=== PATIENT | male | born 1955 | race Caucasian/White ===

== ENCOUNTER 2017-12-20 17:31 | Inpatient (IN) ==
[2017-12-20] MEDS ORDERED: NITROGLYCERIN 0.4 MG SUBLINGUAL TABLET SL PRN (18:07)
[2017-12-20] MEDS ORDERED: ASPIRIN 81 MG CHEWABLE TABLET PO ONE (18:07)
[2017-12-20] MEDS ORDERED: NS 1,000 ML IV ONE ×2 (18:07→19:03)
[2017-12-20] MEDS: SALINE FLUSH 10ml SYRINGE IVF PRN ×2 (18:13→19:39)
--- NOTE | 2017-12-20 18:26 | Emergency Department Report ---
General Adult HPI - General Chief complaint: Medical Emergency Stated complaint: Neck hurts - History of Present Illness HPI narrative: 62-year-old male presents with weakness and dizziness. Patient worked in the sun a full shift, doing construction. He has had this happen once before, approximately 2 years ago when he became dehydrated. He has no cardiac history, takes blood pressure medication, but no other medical issues. Does have some abdominal pain which developed this afternoon. This also happened last time when he became too dehydrated. Has not urinated since approximately noon. Bowel movement 2 since arrival in the ED. Second bowel movement evaluated and very watery. No shortness of breath or chest pain. - Related Data Home Medications Medication Instructions Recorded Confirmed Aspirin [Adult Aspirin] 81 mg PO DAILY 12/20/17 12/20/17 Previous Rx's Medication Instructions Recorded Trolamine Salicylate 10% Cream 1 applicatio TOP QID tube 12/22/17 [Aspercreme] Allergies Allergy/AdvReac Type Severity Reaction Status Date / Time No Known Allergies Allergy Unverified 12/20/17 17:48 Review of Systems All systems: reviewed and negative except as stated PFSH Patient Stated Medical History Hypertension Yes - Social History Smoking status: Never smoker Substance use type: does not use Physical Exam - Limitations Limitations: language barrier - General General appearance: alert, in distress - Normal Exams: Head:: Normocephalic without trauma Chest/Respirations:: Clear all [place], with good airflow, and symmetry bilaterally Cardiovascular:: without murmur or gallop, Pulses 2+ all extremities, capillary refill, <2 seconds all extremities Abdomen:: Bowel sounds positive, non-distended, no hepatosplenomegaly, masses or bruits noted Neurological:: Patient is alert, and oriented, cranial nerves, motor/sensory/ cerebellar, exams w/o gross deficits, to observation - Cardiovascular Cardiovascular exam: Present: normal rhythm, tachycardia - Abdominal Exam Abdominal exam: Present: tenderness (left lower quadrant), hypoactive bowel sounds. Absent: guarding, rebound, rigidity Medical Decision Making - [facility] Narrative Medical decision making narrative: Peripheral IV placed immediately with 1 L normal saline fast bolus. After 1 L normal saline, patient's blood pressure improved to 90 systolic. A second liter of normal saline was started and blood pressure improved to 99/50. Blood work returned showing elevated creatinine 4.6 with potassium 5.5. On reviewing patient's chart, he has had previous episode with dehydration and elevated creatinine which improved dramatically with hydration with IV fluids. Spoke with hospitalist and discussed the case, it is appropriate to admit the patient for IV hydration with follow-up labs in a.m. He may need transfer to tertiary care center with inpatient dialysis and he understands this, but he would prefer to start here if possible. Hospitalist is in agreement. EKG was obtained and did not show obvious T-wave changes due to hyperkalemia. - Differential Diagnosis dehydration, diarrhea, gastroenteritis, heat exhaustion - Lab Data Result diagrams: 12/22/17 06:45 12/22/17 06:45 - EKG Data EKG #1 EKG attestation: Yes: I reviewed and interpreted this EKG. EKG results narrative: 77 bpm EKG shows normal: sinus rhythm Rate: normal Rhythm: NSR [place]/QRS: normal Interpretation: no acute changes Disposition Clinical Impression: Dehydration Disposition: 02 To [facility] Acute Care Condition: Improved Time of Disposition: 16:06 - Seen By: physician
[2017-12-20] MEDS ORDERED: INSULIN REGULAR, HUMAN 100 UNIT/ML INJECTION IVP ONE (19:04)
[2017-12-20] MEDS ORDERED: ONDANSETRON 4 MG/2 ML INJECTION IVP PRN (21:34)
[2017-12-20] MEDS: NS 1,000 ML IV SCH (21:45)
[2017-12-20 22:43] VITALS: BMI 44.7
--- NOTE | 2017-12-20 23:29 | History & Physical Report ---
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 He did not drink much fluids today, no recent illness, no ill contacts, He came to the ER today due to his weakness as well as [place]EL[place], his BP was 90/60, given 2 liters in the ER. Review of Systems All systems PM: 10-point ROS was reviewed, no additional remarkable complaints except - Constitutional Constitutional: Present: chills, fatigue, headache(s) - Gastrointestinal Gastrointestinal: Present: diarrhea, vomiting. Absent: nausea Past Medical History Family History: As Above - Social History Smoking status: Never smoker Substance use type: does not use Alcohol intake: current Alcohol intake frequency: 3 or more drinks per day Medications Home Medications Medication Instructions Recorded Confirmed Type Aspirin [Adult Aspirin] 81 mg PO DAILY 12/20/17 12/20/17 History Lisinopril [Prinivil] 20 mg PO HS 12/20/17 12/20/17 History Allergies Allergy/AdvReac Type Severity Reaction Status Date / Time No Known Allergies Allergy Unverified 12/20/17 17:48 Exam Vital Signs: Temperature 97.6 F 12/20/17 21:31 Pulse Rate 62 12/20/17 21:31 Respiratory Rate 16 12/20/17 21:31 Blood Pressure 102/61 12/20/17 21:31 Pulse Oximetry 97 12/20/17 21:31 Height/Weight/BMI: Height 1.52 m Weight 104 kg Body Mass Index 44.7 - Constitutional Present: no acute distress, obese - Routine HEENT Exam Head: Present: normocephalic - Routine Neck Exam Present: supple - Routine Respiratory Exam Present: CTA bilaterally - Routine Cardiovascular Exam Present: RRR, no murmur - Routine Abdominal Exam Present: soft, normoactive bowel sounds, non distended, non tender Results - Labs CBC & Chem 7: 12/20/17 18:12 12/20/17 20:05 Microbiology Results: Microbiology 12/20/17 18:20 Peripheral/Iv Start Blood Culture - Preliminary Culture Initiated - Results Pending 12/20/17 18:30 Peripheral/Iv Start Blood Culture - Preliminary Culture Initiated - Results Pending Assessment and Plan (1) ARF (acute renal failure) Current visit: Yes Status: Acute (2) Dehydration Current visit: Yes Status: Acute Assessment and Plan: Will continue with aggressive fluid rehydration, recheck BMP and GFR in the am. The pt had a similar episode in the past and his Cr improved with just IVF, hopefully this will be true today. Consider nephrology consult if not improved in am. recheck potassium level in am, slightly improved with recheck in ER. EKG reviewed- normal. DVT Prophylaxis: SCD's GI Prophylaxis: Protonix Resuscitation Status: Full Code - Physician Narrative Narrative: Date: 12/20/17 Time: 2324 Hospital Course Summary Disclaimer: The visit summary below is not to be considered part of the above Progress Note.
[2017-12-21] MEDS: NS 1,000 ML IV SCH ×5 (02:39→22:33)
[2017-12-21] MEDS ORDERED: PANTOPRAZOLE 20 MG TABLET PO SCH (06:30)
--- NOTE | 2017-12-21 08:04 | XRay Report ---
INDICATION: pain PROCEDURE: CHEST 2-VIEWS UPRIGHT (PA & LAT) Encounter: Initial COMPARISON: None FINDINGS: The lungs are clear without evidence of focal abnormal airspace opacity. There is no pleural effusion or pneumothorax. The heart size, mediastinal contours and pulmonary vascularity are within normal limits. Advanced degenerative change in the right shoulder. IMPRESSION: No acute cardiopulmonary disease. .
[2017-12-21] MEDS: ACETAMINOPHEN 325 MG TABLET PO PRN (08:29)
[2017-12-21] MEDS: PANTOPRAZOLE 40 MG TABLET PO SCH (08:30)
[2017-12-21] MEDS: ASPIRIN *EC* 81 MG TABLET PO SCH (08:30)
--- NOTE | 2017-12-21 14:11 | History & Physical Report ---
History of Present Illness Date: 12/21/17 Chief complaint: Neck pain; nausea and vomiting. HPI: Patient is a 62 y/o active male who present to [facility] ED secondary to increasing n/ v, diarrhea, and weakness. Has been working in high heat all day. Not much fluid intake. Notes progressive dyspepsia with n/v. Started passing loose stools. Very weak and unsteady. Breathing well without SOA or congestion. Notes neck pain to back of head/upper shoulder area. As symptoms persistent, came to ED for evaluation. BP very low. Creatinine elevated at 4.8. Has history of similar presentation in January of 2014 when presented with creatinine elevated to 6.0 - improved with hospitalization for IVF. Due to his acute kidney injury likely secondary to severe dehydration and heat exhaustion, placed in inpatient admission at [facility] for further care and treatment. Review of Systems All systems PM: 10-point ROS was reviewed, no additional remarkable complaints except - Constitutional Constitutional: Present: anorexia (With acute symptoms), headache(s) - Cardiovascular Cardiovascular: Present: edema (Reports intermittent edema at home. ). Absent: chest pain, palpitations - Respiratory Respiratory: Absent: cough, pain on inspiration - Gastrointestinal Gastrointestinal: Present: abdominal pain, diarrhea, nausea, vomiting - Musculoskeletal Musculoskeletal: Present: neck pain Past Medical History Medical History Updates: Hypertension, Hx ENRIQUE secondary to dehydration, Morbid Obesity Surgical History: Appy Family History: Diabetes and HTN in family Family History: As Above - Social History Smoking status: Never smoker Household members: spouse Social history: Dr Lemus is PCP Medications Home Medications Medication Instructions Recorded Confirmed Type Aspirin [Adult Aspirin] 81 mg PO DAILY 12/20/17 12/20/17 History Lisinopril [Prinivil] 20 mg PO HS 12/20/17 12/20/17 History Allergies Allergy/AdvReac Type Severity Reaction Status Date / Time No Known Allergies Allergy Unverified 12/20/17 17:48 Exam Vital Signs: Temperature 95.7 F L 12/21/17 08:19 Pulse Rate 67 12/21/17 08:19 Respiratory Rate 20 12/21/17 08:19 Blood Pressure 144/67 H 12/21/17 08:19 Pulse Oximetry 99 12/21/17 08:19 Height/Weight/BMI: Height 1.52 m Weight 103.3 kg Body Mass Index 44.7 - Constitutional Present: well nourished, well developed, morbidly obese, cooperative. Absent: combative, agitated, somnolent, obtunded - Routine HEENT Exam Head: Present: normocephalic, atraumatic Eye: Present: EOMI, PERRL, normal accommodation - Routine Neck Exam Present: supple, full ROM, trachea midline - Routine Respiratory Exam Present: decreased breath sounds. Absent: rales, respiratory distress, rhonchi , stridor, wheezes, crackles - Routine Cardiovascular Exam Present: RRR, no murmur - Routine Abdominal Exam Present: soft, normoactive bowel sounds, non distended, non tender. Absent: guarding - Routine Extremities Exam Present: no edema, pulses intact. Absent: cyanosis, clubbing - Routine Skin Exam Present: dry, warm - Routine Neurological Exam Present: alert, oriented X3, CN II-XII intact, moving all extremities, vision grossly intact, hearing grossly intact, normal speech. Absent: motor deficit, altered mental status - Routine Psychiatric Exam Present: normal affect, normal thought process, cooperative. Absent: anxious, agitated, paranoid Results - Labs CBC & Chem 7: 12/21/17 05:14 12/21/17 05:14 Microbiology Results: Microbiology 12/20/17 18:20 Peripheral/Iv Start Blood Culture - Preliminary Culture Initiated - Results Pending 12/20/17 18:30 Peripheral/Iv Start Blood Culture - Preliminary Culture Initiated - Results Pending Assessment and Plan (1) ARF (acute renal failure) Current visit: Yes Status: Acute (2) Dehydration Current visit: Yes Status: Acute Assessment and Plan: Assessment Acute kidney injury - creatinine 4.8 at presentation, greater than 3x baseline 1.2 at presentation Suspect prerenal secondary to dehydration Metabolic acidosis Dehydration/volume depletion Hypotension Hyperkalemia (POA) Leukocytosis Nausea with vomiting Diarrhea Chronic HTN addressed with lisinopril in outpatient setting Elevated blood sugar Morbid Obesity with BMI 44.5 Plan Placed in OBS by telehospitalist - with significant elevation of creatinine to 3 times baseline at presentation, Inpatient admission would have been prudent. With IVF and holding lisinopril, creatinine decreasing, potassium normalized, and blood pressures increased. Urine output increased and n/v/d resolved. Continue with IVF, decreasing to 125cc/hr. Metabolic acidosis continues. CPK showing mild elevation at 251 - mild rhabdo. Recheck BMP this afternoon to reassess renal status and CO2. Resuscitation Status: Full Code - Physician Narrative Physician: Alberto Brown MD Narrative: Date: 12/21/17 Time: 1408 Hospital Course Summary Disclaimer: The visit summary below is not to be considered part of the above Progress Note. Hospital Course: 12/20/17 OBS admission Will continue with aggressive fluid rehydration, recheck BMP and GFR in the am. The pt had a similar episode in the past and his Cr improved with just IVF, hopefully this will be true today. Consider nephrology consult if not improved in am. Recheck potassium level in am, slightly improved with recheck in ER. EKG reviewed- normal. Full code per his requests. Care to return to Dr Lemus at discharge from [facility]. 12/21/17 Placed in OBS by telehospitalist - with significant elevation of creatinine to 3 times baseline at presentation, Inpatient admission would have been prudent. With IVF and holding lisinopril, creatinine decreasing, potassium normalized, and blood pressures increased. Urine output increased and n/v/d resolved. Continue with IVF, decreasing to 125cc/hr. Metabolic acidosis continues. CPK showing mild elevation at 251 - mild rhabdo. Recheck BMP this afternoon to reassess renal status and CO2.
[2017-12-22] MEDS: PANTOPRAZOLE 40 MG TABLET PO SCH (05:54)
[2017-12-22] MEDS: ACETAMINOPHEN 325 MG TABLET PO PRN (05:54)
[2017-12-22] MEDS: NS 1,000 ML IV SCH ×2 (06:37→15:03)
[2017-12-22 08:09] VITALS: BP 112/57; PULSE 64; RESP 16; TEMP 97.9; O2SAT 98
[2017-12-22] MEDS: ASPIRIN *EC* 81 MG TABLET PO SCH (08:18)
--- NOTE | 2017-12-22 13:13 | Progress Note ---
- Date 12/22/17 Subjective: F/U: Acute kidney injury Doing very well today. Only issue is his neck pain. No nausea or ab pain. Not having loose stool. Breathing well. Eating well. Urinating well. Feels ready to go home. Objective Vital signs: Temperature 97.9 F 12/22/17 08:00 Pulse Rate 64 12/22/17 08:00 Respiratory Rate 16 12/22/17 08:00 Blood Pressure 112/57 12/22/17 08:00 Pulse Oximetry 98 12/22/17 08:00 Height/Weight/BMI: Height 1.52 m Weight 104.8 kg Body Mass Index 44.7 - Constitutional Present: no acute distress, well nourished, well developed, morbidly obese, cooperative - Routine HEENT Exam Head: Present: normocephalic, atraumatic, abrasion Eye: Present: PERRL, scleral injection - Routine Respiratory Exam Present: CTA bilaterally. Absent: respiratory distress - Routine Cardiovascular Exam Present: RRR, no murmur - Routine Abdominal Exam Present: soft, normoactive bowel sounds, non distended, non tender - Routine Extremities Exam Present: pulses intact. Absent: cyanosis, clubbing - Routine Skin Exam Present: intact, dry, warm - Routine Neurological Exam Present: alert, oriented X3, CN II-XII intact, moving all extremities, vision grossly intact, hearing grossly intact, normal speech. Absent: motor deficit, altered mental status - Routine Psychiatric Exam Present: normal affect, normal thought process, cooperative Results - Labs CBC & Chem 7: 12/22/17 06:45 12/22/17 06:45 Microbiology Results: Microbiology 12/20/17 18:20 Peripheral/Iv Start Blood Culture - Preliminary No Growth After 1 Day 12/20/17 18:30 Peripheral/Iv Start Blood Culture - Preliminary No Growth After 1 Day Assessment and Plan (1) ARF (acute renal failure) Current visit: Yes Status: Acute (2) Dehydration Current visit: Yes Status: Acute Assessment and Plan: Assessment Acute kidney injury - creatinine 4.8 at presentation, greater than 3x baseline 1.2 at presentation Suspect prerenal secondary to dehydration Metabolic acidosis Dehydration/volume depletion Hypotension Hyperkalemia (POA) Leukocytosis Nausea with vomiting Diarrhea Chronic HTN addressed with lisinopril in outpatient setting Elevated blood sugar Morbid Obesity with BMI 44.5 Plan Clinically improved. No nausea/vomiting; eating well. Breathing well. Blood pressure improved. Creatinine with improvement to 1.1. Potassium normal at 4.8. May use topical Aspercreme to help neck pain. Tylenol as needed. Avoid NSAIDS. HOLD lisinopril until evaluated in [address] Lemus. F/U with Dr Lemus in 1 week - recommend rechecking BMP secondary to resolving ENRIQUE. See orders for details. Time spent with patient care and discharge greater than 30 minutes. Resuscitation Status: Full Code - Physician Narrative Physician: Alberto Brown MD Narrative: Date: 12/22/17 Time: 1310 Hospital Course Summary Disclaimer: The visit summary below is not to be considered part of the above Progress Note. Hospital Course: 12/20/17 OBS admission Will continue with aggressive fluid rehydration, recheck BMP and GFR in the am. The pt had a similar episode in the past and his Cr improved with just IVF, hopefully this will be true today. Consider nephrology consult if not improved in am. Recheck potassium level in am, slightly improved with recheck in ER. EKG reviewed- normal. Full code per his requests. Care to return to Dr Lemus at discharge from [facility]. 12/21/17 Placed in OBS by telehospitalist - with significant elevation of creatinine to 3 times baseline at presentation, Inpatient admission would have been prudent. With IVF and holding lisinopril, creatinine decreasing, potassium normalized, and blood pressures increased. Urine output increased and n/v/d resolved. Continue with IVF, decreasing to 125cc/hr. Metabolic acidosis continues. CPK showing mild elevation at 251 - mild rhabdo. Recheck BMP this afternoon to reassess renal status and CO2. 12/22/17 Clinically improved. No nausea/vomiting; eating well. Breathing well. Blood pressure improved. Creatinine with improvement to 1.1. Potassium normal at 4.8. May use topical Aspercreme to help neck pain. Tylenol as needed. Avoid NSAIDS. HOLD lisinopril until evaluated in [address] Lemus. F/U with Dr Lemus in 1 week - recommend rechecking BMP secondary to resolving ENRIQUE. See orders for details.
--- NOTE | 2017-12-22 15:55 | Discharge Summary ---
Discharge Information Date of admission: 12/22/17 13:04 Anticipated date of discharge: 12/22/17 Attending Physician: Alberto Brown MD Primary care physician: Lui Lemus DO - Discharge Diagnosis (1) ARF (acute renal failure) Status: Acute (2) Dehydration Status: Acute Discharge diagnosis Acute kidney injury - creatinine 4.8 at presentation, greater than 3x baseline 1.2 at presentation Suspect prerenal secondary to dehydration Associated conditions and complications Metabolic acidosis Dehydration/volume depletion Hypotension Hyperkalemia (POA) Leukocytosis Nausea with vomiting Diarrhea Chronic HTN addressed with lisinopril in outpatient setting Elevated blood sugar Morbid Obesity with BMI 44.5 - Laboratory Labs: Admit Lab 12/20/17 18:12 WBC 14.1 H Hgb 16.7 Hct 48.9 MCV 91.2 Plt Count 255 Neut % (Auto) 74.9 H Lymph % (Auto) 17.6 L Richardson % (Auto) 6.3 Eos % (Auto) 0.4 Baso % (Auto) 0.4 Admit Lab 12/20/17 18:20 Sodium 144 Potassium 5.5 H Chloride 104 Carbon Dioxide 16 L Anion Gap 24 H BUN 53.0 H* Creatinine 4.6 H GFR Calculation 13 BUN/Creatinine Ratio 12 Glucose 186 H Calculated Osmolality 296 H Calcium 10.8 H Total Bilirubin 0.60 AST 37 ALT 41 Alkaline Phosphatase 113 Troponin I 0.025 NT-Pro-B Natriuret Pep 713 H Total Protein 9.2 H Albumin 5.3 H Globulin 3.9 H Albumin/Globulin Ratio 1.4 Lipase 166 Plasma Lactate 1.6 Laboratory Tests 12/21/17 05:14 Hemoglobin A1c 7.1 H 12/22/17 06:45 12/22/17 06:45 - Microbiology Microbiology 12/20/17 18:20 Peripheral/Iv Start Blood Culture - Preliminary No Growth After 1 Day 12/20/17 18:30 Peripheral/Iv Start Blood Culture - Preliminary No Growth After 1 Day - Radiology Radiology: Date of Exam: 12/20/17 Type of Exam: XR chest 2V FINDINGS: The lungs are clear without evidence of focal abnormal airspace opacity. There is no pleural effusion or pneumothorax. The heart size, mediastinal contours and pulmonary vascularity are within normal limits. Advanced degenerative change in the right shoulder. IMPRESSION: No acute cardiopulmonary disease. History of Present Illness HPI: Patient is a 62 y/o active male who present to [facility] [place] ED secondary to increasing n/ v, diarrhea, and weakness. Has been working in high heat all day. Not much fluid intake. Notes progressive dyspepsia with n/v. Started passing loose stools. Very weak and unsteady. Breathing well without SOA or congestion. Notes neck pain to back of head/upper shoulder area. As symptoms persistent, came to ED for evaluation. BP very low. Creatinine elevated at 4.8. Has history of similar presentation in January of 2014 when presented with creatinine elevated to 6.0 - improved with hospitalization for IVF. Due to his acute kidney injury likely secondary to severe dehydration and heat exhaustion, placed in inpatient admission at [facility] [place] [facility] for further care and treatment. For complete details of the H&P refer to that document. Objective Vital signs: Temperature 97.9 F 12/22/17 08:00 Pulse Rate 64 12/22/17 08:00 Respiratory Rate 16 12/22/17 08:00 Blood Pressure 112/57 12/22/17 08:00 Pulse Oximetry 98 12/22/17 08:00 Height/Weight/BMI: Height 1.52 m Weight 104.8 kg Body Mass Index 44.7 Hospital Course This is a general summary of the patient's hospital course. For more details refer to the complete medical record. Hospital course: 12/20/17 OBS admission Will continue with aggressive fluid rehydration, recheck BMP and GFR in the am. The pt had a similar episode in the past and his Cr improved with just IVF, hopefully this will be true today. Consider nephrology consult if not improved in am. Recheck potassium level in am, slightly improved with recheck in ER. EKG reviewed- normal. Full code per his requests. Care to return to Dr Lemus at discharge from [facility] [place] [facility]. 12/21/17 Placed in OBS by telehospitalist - with significant elevation of creatinine to 3 times baseline at presentation, Inpatient admission would have been prudent. With IVF and holding lisinopril, creatinine decreasing, potassium normalized, and blood pressures increased. Urine output increased and n/v/d resolved. Continue with IVF, decreasing to 125cc/hr. Metabolic acidosis continues. CPK showing mild elevation at 251 - mild rhabdo. Recheck BMP this afternoon to reassess renal status and CO2. 12/22/17 Clinically improved. No nausea/vomiting; eating well. Breathing well. Blood pressure improved. Creatinine with improvement to 1.1. Potassium normal at 4.8. May use topical Aspercreme to help neck pain. Tylenol as needed. Avoid NSAIDS. HOLD lisinopril until evaluated in [address] Lemus. F/U with Dr Lemus in 1 week - recommend rechecking BMP secondary to resolving ENRIQUE. See orders for details. Time spent with patient: discharge greater than 30 minutes Resuscitation Status: Full Code Discharge Plan - Discharge Disposition Discharge Date: 12/22/17 Disposition: Home, Self-Care w Plan Readm *Condition: Improved Reason For Visit (Visit label in EMR): dehydration,renal insufficiency, hyperkalemia - Discharge Medications *Discharge Medications: New Trolamine Salicylate 10% Cream [Aspercreme] 1 applicatio TOP QID tube Continue Aspirin [Adult Aspirin] 81 mg PO DAILY Discontinued Lisinopril [Prinivil] 20 mg PO HS - Discharge Packet/Instructions *Diet: Low sodium, low carbohydrate. Plenty of water to help hydration. *Activity: As tolerated *Pain Management/Treatment: Tylenol safe to use. May use Aspercreme topically 4 times a day as needed for pain. Do not use NSAIDS (ibuprofin, naproxen, ect) as can put strain on kidneys. *Wound Care: n/a Additional Instructions: When working in heat, be sure to drink extra water. You need to drink enough water to continue to produce urine output several times during working day. Do not take lisinopril until evaluated by Dr Lemus - we want to be sure your kidney funtion is doing well before you start this medication again. *Expected Signs/Symptoms: Improvement of strenght. Improvement of kidney function. *Notify Physician if: Temp >100.4. Intractable nausea or diarrhea. *During Business Hours Contact: Dr Lemus *After Business Hours Contact: Call [facility] [place] and have Dr Lemus contacted. *Pending Lab/Results: No Pending Lab - Referrals/Follow Up *Referrals/Follow Up: Lui Lemus DO [Primary Care Provider[facility] - [facility]. Recommend rechecking BMP at that time. ) - Patient Handouts Patient Handouts: Dehydration (GEN), Hyperkalemia (GEN) - Dismissal Complete Discharge Instructions are:: Complete Physician Narrative - Narrative Physician: Alberto Brown MD Attestation Narrative: Date: 12/22/17 Time: 155 I have independently interviewed and examined patient prior to discharge. See my progress note for details. Medically stable for discharge.
== END 2017-12-22 14:14 | disposition home or self-care (01) | DRG 683 ==
LOC: ED 17:31 → EDHOLD 17:31 → MED 21:25
PROVIDERS: ADMIT Internal Medicine; ATTEND Hospitalist